=== PATIENT | male | born 1930 | race Caucasian/White ===

== ENCOUNTER 2019-05-02 16:02 | Emergency (ER) | payer OTHER ==
[~2019-05-02] VITALS: Ht 175.3 cm; Wt 63.5 kg
--- OUTSIDE RECORDS SUMMARY | 2019-05-02 16:07 | XMS REPORT ---
Author Author KEYON QURESHI Organization 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 Active 471594312 Problem Pure hypercholesterolemia E78.00 Active 667075066 Problem Benign prostatic hyperplasia with lower urinary tract symptoms N40.1 Active 990797307 Problem Recurrent major depressive disorder, in partial remission F33.41 Active 07546430 Problem Benign essential hypertension I10 Active 5217244 ALLERGIES No Known Allergies ENCOUNTERS Encounter Location Date Diagnosis [facility] [address] [place] [address] Mar, [place] [id number] [address] Dec, Diabetic nephropathy associated with type 2 diabetes mellitus E11.[address] [address] Dec, Type 2 diabetes mellitus with hyperglycemia, unspecified whether correction insulin use E11.65 ; Seizure R56.9 ; Benign essential hypertension I10 ; Nocturia R35.1 ; Benign prostatic hyperplasia with lower urinary tract symptoms N40.1 ; Pure hypercholesterolemia E78.00 and Recurrent major depressive disorder, in partial remission F33.41 [place] [address] [facility] [id number] [address] Dec, IMMUNIZATIONS No Known Immunizations SOCIAL HISTORY Never Assessed 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 PLAN OF CARE VITAL SIGNS MEDICATIONS Medication Instructions Dosage Frequency Start Date End Date Duration Status Lisinopril 2.5 MG Orally Once a day 1 tablet 24h 30 day(s) Active Keppra 500 MG Orally Twice a day 1 tablet 12h 30 day(s) Active Proscar 5 MG Orally Once a day 1 tablet 24h 30 day(s) Active Flomax 0.4 MG Orally Once a day 1 capsule 24h 30 day(s) Active Vision Formula/Lutein - as directed Active Zocor 80 MG Orally Once a day 1 tablet in the evening 24h 30 day(s) Active Dilantin 100 MG Orally Three times a day 1 capsule 8h 30 day(s) Active Ativan 0.5 MG Orally every 6 hrs 1 tablet as needed 6h Active Omeprazole 20 MG Orally Once a day 1 capsule 24h 30 day(s) Active Celexa 20 MG Orally Once a day 1 tablet 24h 30 day(s) Active Glucophage 1000 MG Orally Once a day 1 tablet with a meal 24h 30 day(s) Active Glucotrol 10 MG Orally Once a day 1 tablet 24h 30 day(s) Active RESULTS No Results PROCEDURES No Known procedures INSTRUCTIONS MEDICATIONS ADMINISTERED No Known Medications MEDICAL (GENERAL) HISTORY Type Description Date Medical History Type 2 diabetes mellitus Medical History Seizure disorder Medical History Hypercholesteremia Medical History Chronic kidney disease Medical History Acute blood loss anemia Medical History Delirium Medical History Cystitis without hematuria Surgical History Hip Replacement Surgical History Bypass Surgery 1989 Hospitalization History Fx Hip
--- OUTSIDE RECORDS SUMMARY | 2019-05-02 16:07 | XMS REPORT | Continuity of Care Document ---
Author Organization Unknown Address Unknown Allergies There is no data. Medications There is no data. Problems There is no data. Procedures There is no data. Results Test Result Range CMP - 12/15/18 08:00 GLUCOSE 235 mg/dL 65-99 UREA NITROGEN (BUN) 17 mg/dL 7-25 CREATININE 1.16 mg/dL 0.70-1.11 eGFR NON-AFR. UZBEK 57 mL/min/1.73m2 > OR=60 eGFR 66 mL/min/1.73m2 > OR=60 BUN/CREATININE RATIO 15 (calc) 6-22 SODIUM 140 mmol/L 135-146 POTASSIUM 4.9 mmol/L 3.5-5.3 CHLORIDE 104 mmol/L 98-110 CARBON DIOXIDE 28 mmol/L 20-32 CALCIUM 9.0 mg/dL 8.6-10.3 PROTEIN, TOTAL 6.8 g/dL 6.1-8.1 ALBUMIN 4.1 g/dL 3.6-5.1 GLOBULIN 2.7 g/dL (calc) 1.9-3.7 ALBUMIN/GLOBULIN RATIO 1.5 (calc) 1.0-2.5 BILIRUBIN, TOTAL 0.3 mg/dL 0.2-1.2 ALKALINE PHOSPHATASE 77 U/L 40-115 AST 11 U/L 10-35 ALT 12 U/L 9-46 CBC - 12/15/18 08:00 WHITE BLOOD CELL COUNT 9.3 Thousand/uL 3.8-10.8 RED BLOOD CELL COUNT 3.90 Million/uL 4.20-5.80 HEMOGLOBIN 12.8 g/dL 13.2-17.1 HEMATOCRIT 37.0 % 38.5-50.0 MCV 94.9 fL 80.0-100.0 MCH 32.8 pg 27.0-33.0 MCHC 34.6 g/dL 32.0-36.0 RDW 12.2 % 11.0-15.0 PLATELET COUNT 236 Thousand/uL 140-400 MPV 10.3 fL 7.5-12.5 ABSOLUTE NEUTROPHILS 5980 cells/uL 3231-4062 ABSOLUTE LYMPHOCYTES 2241 cells/uL 850-3900 ABSOLUTE MONOCYTES 744 cells/uL 200-950 ABSOLUTE EOSINOPHILS 298 cells/uL 15-500 ABSOLUTE BASOPHILS 37 cells/uL 0-200 NEUTROPHILS 64.3 % NRG LYMPHOCYTES 24.1 % NRG MONOCYTES 8.0 % NRG EOSINOPHILS 3.2 % NRG BASOPHILS 0.4 % NRG A1C - 12/15/18 08:00 HEMOGLOBIN A1c 8.0 % of total Hgb <5.7 CULTURE, URINE - 03/16/19 15:35 CULTURE, URINE, ROUTINE SEE NOTE NRG Encounters ACCT No. Visit Date/Time Discharge Status Pt. Type Provider Facility Loc./Unit Complaint [id number] 04/10/2019 11:40:00 04/10/2019 23:59:59 [facility] Outpatient KEYON QURESHI [facility] [id number] 03/16/2019 08:30:00 Document Registration [id number] 12/15/2018 09:15:00 Document Registration
[2019-05-02] MEDS ORDERED: LIDOCAINE 1% INJ 20 ML 20 ML VIAL INJ ONE (16:30)
--- NOTE | 2019-05-02 16:50 | ED Upper Extremity ---
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 States he tried to catch self resulting in the wound. States his tetanus is UTD. Denies any other injuries. Onset: just prior to arrival Severity: mild Pain/Injury Location: left wrist Method of Injury: fell, incised Modifying Factors: Improves With Other (none) Allergies and Home Medications Allergies Coded Allergies: No Known Drug Allergies (Unverified , 05/02/19) Patient Home Medication List Home Medication List Reviewed: Yes Review of Systems Constitutional: see HPI Skin: see HPI, other (laceration to left wrist) All Other Systems Reviewed Negative Unless Noted: Yes (Negative excepted noted.) Physical Exam Vital Signs Vital Signs - First Documented 05/02/19 16:15 Temp 97.4 Pulse 80 Resp 18 B/P (MAP) 101/51 (68) Pulse Ox 97 O2 Delivery Room Air Capillary Refill : Height, Weight, BMI Height: '" Weight: lbs. oz. kg; BMI Method: General Appearance: WD/WN, no apparent distress Cardiovascular: regular rate, rhythm Respiratory: no respiratory distress Wrist: Yes normal ROM, Yes pain Hand: normal inspection Neurologic/Psychiatric: no motor/sensory deficits, alert, normal mood/affect, oriented x 3 Skin: warm/dry, other (5 cm slightly irregular sub-q laceration to volar left wrist; bleeding controlled. Neurovascular is intact; FROM present. ) Procedures/Interventions Wound Location: Upper Extremities (left wrist) Wound Length (cm): 5 Wound's Depth, Shape: irregular, sub Q Wound Explored: clean Betadine Prep?: No (Hibiclens) Anesthesia: 1% Lidocaine Suture: Ethlion Suture Size: 4-0 Sterile Dressing Applied?: Yes Progress Patient tolerated well Progress/Results/Core Measures Results/Orders My Orders Departure Impression Primary Impression: Laceration of left hand Disposition: 01 HOME, SELF-CARE Condition: Improved Departure-Patient Inst. Decision time for Depature: 16:49 Referrals: KEYON QURESHI MD (PCP/Family) Primary Care Physician Patient Instructions: Laceration Repair With Stitches (DC) Add. Discharge Instructions: RETURN HERE IN 10 DAYS TO HAVE YOUR STITCHES REMOVED. RECOMMEND 1000 mg OF TYLENOL EVERY 6 HOURS FOR ANY PAIN. All discharge instructions reviewed with patient and/or family. Voiced understanding. MONTY GALICIA DO May 02, 2019 16:50
[2019-05-02 17:20] VITALS: BP 111/54
== END 2019-05-02 17:14 | disposition home or self-care (01) ==
LOC: EDUNIT# 16:02 → ER FS 16:04
DX: S61.512A Laceration without foreign body of left wrist, initial encounter (principal); X58.XXXA Exposure to other specified factors, initial encounter

== ENCOUNTER 2019-05-17 11:48 | Emergency (ER) | payer OTHER ==
[~2019-05-17] VITALS: Ht 162.6 cm; Wt 68.0 kg
--- OUTSIDE RECORDS SUMMARY | 2019-05-17 11:52 | XMS REPORT | Continuity of Care Document ---
Author Organization Unknown Address Unknown Phone Unavailable Allergies There is no data. Medications There is no data. Problems There is no data. Procedures There is no data. Results Test Result Range CMP - 12/15/18 08:00 GLUCOSE 235 mg/dL 65-99 UREA NITROGEN (BUN) 17 mg/dL 7-25 CREATININE 1.16 mg/dL 0.70-1.11 eGFR NON-AFR. CYMRO 57 mL/min/1.73m2 > OR=60 eGFR 66 mL/min/1.73m2 [...] 10.3 fL 7.5-12.5 ABSOLUTE NEUTROPHILS 5980 cells/uL 2070-3891 ABSOLUTE LYMPHOCYTES 2241 cells/uL 850-3900 ABSOLUTE MONOCYTES [...] Status Pt. Type Provider Facility Loc./Unit Complaint [id number] 04/10/2019 11:40:00 04/10/2019 23:59:59 [facility] Outpatient KEYON QURESHI [facility] [id number] 03/16/2019 08:30:00 Document Registration [id number] 12/15/2018 09:15:00 Document Registration
[2019-05-17 12:08] VITALS: BP 104/86
== END 2019-05-17 12:10 | disposition home or self-care (01) ==
LOC: EDUNIT# 11:48 → ER FS 11:49
DX: S61.512D Laceration without foreign body of left wrist, subsequent encounter (principal); X58.XXXD Exposure to other specified factors, subsequent encounter

== ENCOUNTER 2019-06-11 17:20 | Emergency (ER) | payer MEDICARE, OTHER ==
[~2019-06-11] VITALS: Ht 162.6 cm; Wt 68.0 kg
--- NOTE | 2019-06-11 17:33 | ED Chest Pain ---
General Stated Complaint: CHEST PAIN/SOA SWEATY Source: patient Exam Limitations: no limitations History of Present Illness Date Seen by Provider: Jun 11, 2019 Time Seen by Provider: 17:29 Initial Comments This 88-year-old white male presents with chest pain. Patient relates that sharp and in the epigastric area. The patient has had a history of bypass mcclendon rgery in the past. He denies associated shortness of breath, nausea, or diaphoresis. Patient denies productive cough, fever or chills, worsening chest pain with exertion, or dysuria or frequency. Allergies and Home Medications Allergies Coded Allergies: No Known Drug Allergies (Unverified , 05/02/19) Patient Home Medication List Home Medication List Reviewed: Yes Review of Systems Review of Systems Constitutional: no symptoms reported; No chills, No fever EENTM: No Symptoms Reported Respiratory: No Symptoms Reported Cardiovascular: See HPI, Chest Pain Gastrointestinal: No Symptoms Reported, Abdominal Pain (epigastric pain.); Denies Constipated, Denies Diarrhea, Denies Nausea, Denies Vomiting Genitourinary: No Symptoms Reported Musculoskeletal: no symptoms reported Skin: no symptoms reported Psychiatric/Neurological: No Symptoms Reported Endocrine: No Symptoms Reported Hematologic/Lymphatic: No Symptoms Reported Past Khuzmbb-Wygugn-Iifggd Hx Past Med/Social Hx: Reviewed Nursing Past Med/Soc Hx Patient Social History 2nd Hand Smoke Exposure: No Recent Hopitalizations: No Immunizations Up To Date Tetanus Booster (TDap): Less than 5yrs Seasonal Allergies Seasonal Allergies: No Past Medical History Surgeries: Yes (Left hip, hernia repair) CABG, Orthopedic Respiratory: Yes COPD Cardiac: Yes Coronary Artery Disease, Heart Attack, Hypertension Neurological: Yes Seizure Disorder Genitourinary: Yes (Chronic Kidney disease) Benign Prostatic Hyperpl Gastrointestinal: Yes Gastroesophageal Reflux, Chronic Constipation Musculoskeletal: Yes Fractures Endocrine: Yes Diabetes, Non-Insulin dep HEENT: No Cancer: No Psychosocial: Yes Depression Blood Disorders: No Physical Exam Vital Signs Capillary Refill : Height, Weight, BMI Height: 5'4.00" Weight: 150lbs. oz. 68.896157mz; 21.09 BMI Method:Stated General Appearance: No Apparent Distress, WD/WN HEENT: Normal ENT Inspection Neck: Normal Inspection Respiratory: Normal Breath Sounds, No Respiratory Distress Cardiovascular: Regular Rate, Rhythm, No Murmur Gastrointestinal: Normal Bowel Sounds, Non Tender Extremity: Normal Capillary Refill, Normal Inspection, Normal Range of Motion Neurologic/Psychiatric: Oriented x3, No Motor/Sensory Deficits Skin: Normal Color, Warm/Dry Procedures/Interventions Suture Size: 4-0 Progress/Results/Core Measures Results/Orders Lab Results Laboratory Tests Test 06/11/19 17:15 Range/Units White Blood Count 17.2 H 4.3-11.0 10^3/uL Red Blood Count 3.87 L 4.35-5.85 10^6/uL Hemoglobin 12.1 L 13.3-17.7 G/DL Hematocrit 36 L 40-54 % Mean Corpuscular Volume 93 80-99 FL Mean Corpuscular Hemoglobin 31 25-34 PG Mean Corpuscular Hemoglobin Concent 34 32-36 G/DL Red Cell Distribution Width 12.9 10.0-14.5 % Platelet Count 332 130-400 10^3/uL Mean Platelet Volume 9.7 7.4-10.4 FL Neutrophils (%) (Auto) 54 42-75 % Lymphocytes (%) (Auto) 31 12-44 % Monocytes (%) (Auto) 8 0-12 % Eosinophils (%) (Auto) 7 0-10 % Basophils (%) (Auto) 0 0-10 % Neutrophils # (Auto) 9.3 H 1.8-7.8 X 10^3 Lymphocytes # (Auto) 5.3 H 1.0-4.0 X 10^3 Monocytes # (Auto) 1.4 H 0.0-1.0 X 10^3 Eosinophils # (Auto) 1.2 H 0.0-0.3 10^3/uL Basophils # (Auto) 0.1 0.0-0.1 10^3/uL Neutrophils % (Manual) 54 % Lymphocytes % (Manual) 27 % Monocytes % (Manual) 7 % Eosinophils % (Manual) 10 % Basophils % (Manual) 0 % Band Neutrophils 2 % Prothrombin Time 13.9 12.2-14.7 SEC INR Comment 1.0 0.8-1.4 Activated Partial Thromboplast Time 26 24-35 SEC Sodium Level 140 135-145 MMOL/L Potassium Level 3.5 L 3.6-5.0 MMOL/L Chloride Level 104 98-107 MMOL/L Carbon Dioxide Level 22 21-32 MMOL/L Anion Gap 14 5-14 MMOL/L Blood Urea Nitrogen 19 H 7-18 MG/DL Creatinine 1.40 H 0.60-1.30 MG/DL Estimat Glomerular Filtration Rate 48 BUN/Creatinine Ratio 14 Glucose Level 186 H 70-105 MG/DL Calcium Level 9.0 8.5-10.1 MG/DL Corrected Calcium 9.2 8.5-10.1 MG/DL Magnesium Level 2.5 H 1.6-2.4 MG/DL Total Bilirubin 0.2 0.1-1.0 MG/DL Aspartate Amino Transf (AST/SGOT) 31 5-34 U/L Alanine Aminotransferase (ALT/SGPT) 19 0-55 U/L Alkaline Phosphatase 136 40-136 U/L Myoglobin 22.1 10.0-92.0 NG/ML Troponin I < 0.30 <0.30 NG/ML Total Protein 7.4 6.4-8.2 GM/DL Albumin 3.8 3.2-4.5 GM/DL My Orders Orders - YARY, NORBERTO Hogan MD Cbc With Automated Diff (06/11/19 17:23) Magnesium (06/11/19 17:23) Chest 1 View Ap/Pa Only (06/11/19 17:23) Ekg Tracing (06/11/19 17:23) Comprehensive Metabolic Panel (06/11/19 17:23) Myoglobin Serum (06/11/19 17:23) Protime With Inr (06/11/19 17:23) Partial Thromboplastin Time (06/11/19 17:23) O2 (06/11/19 17:23) Monitor-Rhythm Ecg Trace Only (06/11/19 17:23) Lipid Panel (06/12/19 06:00) Ed Iv/Invasive Line Start (06/11/19 17:23) Troponin I (06/11/19 17:23) Manual Differential (06/11/19 17:15) Nitroglycerin 0.4 Mg Btl 25's (Nitrostat (06/11/19 17:45) Progress Progress Note : Time: 18:16 Progress Note The patient's chest pain resolved spontaneously in the emergency department. Patient requested to be discharged home. Patient's laboratory evaluation demonstrated normal troponin. His EKG demonstrated a normal sinus rhythm. Departure Impression Primary Impression: Chest pain Qualified Codes: R07.9 - Chest pain, unspecified Disposition: 01 HOME, SELF-CARE Condition: Improved Departure-Patient Inst. Decision time for Depature: 18:18 Referrals: KEYON QURESHI MD (PCP/Family) Primary Care Physician Patient Instructions: Chest Pain (DC) Add. Discharge Instructions: Follow-up with her doctor on Wednesday for further evaluation. Return if any further episodes of chest pain occur. NORBERTO PRINGLE MD Jun 11, 2019 17:33
[2019-06-11 17:37] LABS: HEMATOCRIT 36 % (40-54); HEMOGLOBIN 12.1 G/DL (13.3-17.7); MEAN CORPUSCULAR HEMOGLOBIN 31 PG (25-34); MEAN CORPUSCULAR HGB CONC 34 G/DL (32-36); MEAN CORPUSCULAR VOLUME 93 FL (80-99); MEAN PLATELET VOLUME 9.7 FL (7.4-10.4); NEUTROPHILS % (AUTO) 54 % (42-75); PLATELET COUNT 332 10^3/uL (130-400); RED CELL DISTRIBUTION WIDTH 12.9 % (10.0-14.5); WHITE BLOOD COUNT 17.2 10^3/uL (4.3-11.0)
[2019-06-11 17:38] LABS: BASOPHILS # (AUTO) 0.1 10^3/uL (0.0-0.1); BASOPHILS % (AUTO) 0 % (0-10); EOSINOPHILS # (AUTO) 1.2 10^3/uL (0.0-0.3); EOSINOPHILS % (AUTO) 7 % (0-10); LYMPHOCYTES # (AUTO) 5.3 X 10^3 (1.0-4.0); LYMPHOCYTES % (AUTO) 31 % (12-44); MONOCYTES # (AUTO) 1.4 X 10^3 (0.0-1.0); MONOCYTES % (AUTO) 8 % (0-12); NEUTROPHILS # (AUTO) 9.3 X 10^3 (1.8-7.8)
[2019-06-11] MEDS ORDERED: NITROGLYCERIN 0.4 MG SL TABS BTL 25'S SL PRN (17:45)
--- NOTE | 2019-06-11 17:50 | Diagnostic Imaging Report ---
INDICATION: Chest pain. EXAMINATION: Single view of the chest was obtained. FINDINGS: Normal heart size and vascularity. The lungs are clear. There is no effusion or pneumothorax. There are changes of prior CABG. There is a hiatal hernia. IMPRESSION: Hiatal hernia. No acute abnormality is seen. Dictated by: Dictated on workstation # [id number]
[2019-06-11 17:52] LABS: BAND NEUTROPHILS 2 %; BASOPHILS % (MANUAL) 0 %; EOSINOPHILS % (MANUAL) 10 %; LYMPHOCYTES % (MANUAL) 27 %; MONOCYTES % (MANUAL) 7 %; NEUTROPHILS % (MANUAL) 54 %
[2019-06-11 18:03] LABS: BILIRUBIN,TOTAL 0.2 MG/DL (0.1-1.0); CREATININE SERUM 1.4 MG/DL (0.60-1.30); MAGNESIUM 2.5 MG/DL (1.6-2.4); POTASSIUM 3.5 MMOL/L (3.6-5.0)
[2019-06-11 18:04] LABS: ALBUMIN 3.8 GM/DL (3.2-4.5); TOTAL PROTEIN 7.4 GM/DL (6.4-8.2)
[2019-06-11 18:12] LABS: PROTHROMBIN TIME PATIENT 13.9 SEC (12.2-14.7)
[2019-06-11 18:28] VITALS: BP 115/62
== END 2019-06-11 18:28 | disposition home or self-care (01) ==
LOC: EDUNIT# 17:20 → ER FS 17:22
DX: R07.9 Chest pain, unspecified (principal); J44.9 Chronic obstructive pulmonary disease, unspecified; I12.9 Hypertensive chronic kidney disease with stage 1 through stage 4 chronic kidney disease, or unspecified chronic kidney disease; N18.9 Chronic kidney disease, unspecified; I25.2 Old myocardial infarction; I25.10 Atherosclerotic heart disease of native coronary artery without angina pectoris; G40.909 Epilepsy, unspecified, not intractable, without status epilepticus; N40.0 Benign prostatic hyperplasia without lower urinary tract symptoms; K21.9 Gastro-esophageal reflux disease without esophagitis; E11.22 Type 2 diabetes mellitus with diabetic chronic kidney disease; F32.9 Major depressive disorder, single episode, unspecified; Z95.1 Presence of aortocoronary bypass graft; Z98.890 Other specified postprocedural states
CPT/HCPCS: 36415; 71045; 80053; 83735; 83874; 84484; 85007; 85027; 85610; 85730; 93005; 93041

== ENCOUNTER 2020-02-08 14:12 | Emergency (ER) | payer MEDICARE ==
[~2020-02-08] VITALS: Ht 175.2 cm; Wt 65.9 kg
--- NOTE | 2020-02-08 14:29 | ED Cardiac General ---
History of Present Illness General Stated Complaint: NEW ONSET ARRHYTHMIA; LT ARM PAIN Source: patient Exam Limitations: no limitations History of Present Illness Date Seen by Provider: Feb 08, 2020 Time Seen by Provider: 14:15 Initial Comments The patient is an 89-year-old male who presents for evaluation of a possible arrhythmia. He states that a home health nurse came to evaluate him for prescheduled visit and thought that she auscultated in arrhythmia. The patient w as brought to his doctor's office where the nurse also thought that she heard a dysrhythmia so the patient was brought to the emergency department. He does not feel any palpitations and has absolutely no complaints at this time. His blood pressure upon arrival is 125/67. Specifically he denies chest pain, shortness of breath, nausea or vomiting, diaphoresis, dizziness, abdominal or back pain, or syncope. He is alert and oriented 4, calm, and appears to be in no distress at this time. 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: No ASA po PASSENGER TRAIN BRAKER: No Associated Systoms: Denies Symptoms Allergies and Home Medications Allergies Coded Allergies: No Known Drug Allergies (Unverified , 05/02/19) Patient Home Medication List Home Medication List Reviewed: Yes Review of Systems Review of Systems Constitutional: no symptoms reported EENTM: No Symptoms Reported Respiratory: No Symptoms Reported Cardiovascular: No Symptoms Reported Gastrointestinal: No Symptoms Reported Genitourinary: No Symptoms Reported Musculoskeletal: no symptoms reported Skin: no symptoms reported Psychiatric/Neurological: No Symptoms Reported Endocrine: No Symptoms Reported Hematologic/Lymphatic: No Symptoms Reported All Other Systems Reviewed Negative Unless Noted: Yes Past Qbflggt-Pyhypq-Ylkazz Hx Past Med/Social Hx: Reviewed Nursing Past Med/Soc Hx Patient Social History 2nd Hand Smoke Exposure: No Recent Foreign Travel: No Contact w/Someone Who Travel: No Recent Hopitalizations: No Immunizations Up To Date Tetanus Booster (TDap): Unknown Seasonal Allergies Seasonal Allergies: No Past Medical History Surgeries: Yes (Left hip, hernia repair) Cardiac, CABG, Orthopedic Respiratory: Yes COPD Cardiac: Yes Coronary Artery Disease, Heart Attack, Hypertension Neurological: Yes Seizure Disorder Genitourinary: Yes (Chronic Kidney disease) Benign Prostatic Hyperpl Gastrointestinal: Yes Gastroesophageal Reflux, Chronic Constipation Musculoskeletal: Yes Fractures Endocrine: Yes Diabetes, Non-Insulin dep HEENT: No Cancer: No Psychosocial: Yes Depression Integumentary: No Blood Disorders: No Physical Exam Vital Signs Vital Signs - First Documented 02/08/20 14:15 Temp 36.8 Pulse 73 Resp 18 B/P (MAP) 125/67 (86) Pulse Ox 96 O2 Delivery Room Air Capillary Refill : Height, Weight, BMI Height: 5'4.00" Weight: 150lbs. oz. 68.995948rd; 21.09 BMI Method:Stated General Appearance: No Apparent Distress, WD/WN HEENT: PERRL/EOMI, Pharynx Normal Neck: Full Range of Motion, Normal Inspection, Non Tender Respiratory: Lungs Clear, Normal Breath Sounds, No Accessory Muscle Use, No Respiratory Distress Cardiovascular: No Edema, No Gallop, No JVD, Normal Peripheral Pulses, Irregularly Irregular Gastrointestinal: Normal Bowel Sounds, No Pulsatile Mass, Non Tender, Soft Extremity: Normal Capillary Refill, Normal Inspection, Non Tender Neurologic/Psychiatric: Alert, Oriented x3, No Motor/Sensory Deficits, Normal Mood/Affect Skin: Normal Color, Warm/Dry Procedures/Interventions Suture Size: 4-0 Progress/Results/Core Measures Results/Orders Lab Results Laboratory Tests Test 02/08/20 14:32 Range/Units White Blood Count 8.7 4.3-11.0 10^3/uL Red Blood Count 3.94 L 4.35-5.85 10^6/uL Hemoglobin 12.5 L 13.3-17.7 G/DL Hematocrit 38 L 40-54 % Mean Corpuscular Volume 96 80-99 FL Mean Corpuscular Hemoglobin 32 25-34 PG Mean Corpuscular Hemoglobin Concent 33 32-36 G/DL Red Cell Distribution Width 12.5 10.0-14.5 % Platelet Count 257 130-400 10^3/uL Mean Platelet Volume 9.0 7.4-10.4 FL Neutrophils (%) (Auto) 58 42-75 % Lymphocytes (%) (Auto) 23 12-44 % Monocytes (%) (Auto) 8 0-12 % Eosinophils (%) (Auto) 10 0-10 % Basophils (%) (Auto) 1 0-10 % Neutrophils # (Auto) 5.0 1.8-7.8 X 10^3 Lymphocytes # (Auto) 2.0 1.0-4.0 X 10^3 Monocytes # (Auto) 0.7 0.0-1.0 X 10^3 Eosinophils # (Auto) 0.9 H 0.0-0.3 10^3/uL Basophils # (Auto) 0.1 0.0-0.1 10^3/uL Sodium Level 140 135-145 MMOL/L Potassium Level 4.0 3.6-5.0 MMOL/L Chloride Level 104 98-107 MMOL/L Carbon Dioxide Level 24 21-32 MMOL/L Anion Gap 12 5-14 MMOL/L Blood Urea Nitrogen 19 H 7-18 MG/DL Creatinine 1.38 H 0.60-1.30 MG/DL Estimat Glomerular Filtration Rate 49 BUN/Creatinine Ratio 14 Glucose Level 165 H 70-105 MG/DL Calcium Level 8.7 8.5-10.1 MG/DL Corrected Calcium 8.9 8.5-10.1 MG/DL Total Bilirubin 0.2 0.1-1.0 MG/DL Aspartate Amino Transf (AST/SGOT) 11 5-34 U/L Alanine Aminotransferase (ALT/SGPT) 10 0-55 U/L Alkaline Phosphatase 117 40-136 U/L Troponin I < 0.30 <0.30 NG/ML Pro-B-Type Natriuretic Peptide 531.0 H <75.0 PG/ML Total Protein 6.8 6.4-8.2 GM/DL Albumin 3.8 3.2-4.5 GM/DL My Orders Orders - COLBY JEROME DO Cbc With Automated Diff (02/08/20 14:16) Chest 1 View Ap/Pa Only (02/08/20 14:16) Ekg Tracing (02/08/20 14:16) Comprehensive Metabolic Panel (02/08/20 14:16) O2 (02/08/20 14:16) Monitor-Rhythm Ecg Trace Only (02/08/20 14:16) Ed Iv/Invasive Line Start (02/08/20 14:16) Troponin I Fs (02/08/20 14:16) Probnp Fs (02/08/20 14:16) Vital Signs/I&O 02/08/20 14:15 Temp 36.8 Pulse 73 Resp 18 B/P (MAP) 125/67 (86) Pulse Ox 96 O2 Delivery Room Air Progress Progress Note : Progress Note @1522 - patient updated on lab and imaging results. His creatinine was noted to be elevated but is similar to previous visits. His BNP is also somewhat elevated and there is no previous comparison. However the patient has no complaints at all at this time. Advised him to follow up with his PCP and/or education and training coordinator in the next 1-2 days and to return to the emergency Department immediately for difficulty breathing, chest pain, new or worsening symptoms. The patient expresses verbal understanding and agreement with the plan and is stable for discharge. Comment EKG@1430 - Normal sinus rhythm, rate of 64, normal axis, occasional premature beat, no acute ischemic findings noted, no STEMI, reviewed and interpreted by myself Diagnostic Imaging Diagonstic Imaging: Xray Comments [facility] [place] NAME: MONTY BARRIENTOS [facility] REC#: [id number] PT STATUS: REG ER : 1932 PHYSICIAN: COLBY JEROME DO ADMIT DATE: 02/08/20/ER FS Signed Date of Exam:02/08/20 CHEST 1 VIEW AP/PA ONLY INDICATION: Irregular heart rate, left arm pain. Frontal chest obtained at 0234 p.m. compared 06/11/2019 There is poststernotomy change. The heart is top limits normal in size. There are mild chronic appearing increased interstitial markings. There is relatively poor inspiration. There is no edwin consolidation or pneumothorax or pleural fluid. IMPRESSION: Relatively poor inspiration. Postoperative changes with borderline heart size. Chronic appearing increased markings with no definite acute consolidation or pleural fluid. Dictated by: Dictated on workstation # [id number] Dict: 02/08/20 1439 Trans: 02/08/20 1453 [facility] [id number] Interpreted by: BREANNA KO MD Electronically signed by: BREANNA KO MD 02/08/20 1453 Departure Impression Primary Impression: Sinus arrhythmia seen on electrocardiogram Additional Impressions: Chronic renal insufficiency Elevated brain natriuretic peptide (BNP) level Disposition: 01 HOME, SELF-CARE Condition: Stable Departure-Patient Inst. Decision time for Depature: 15:24 Referrals: KEYON QURESHI MD (PCP/Family) Primary Care Physician Patient Instructions: Arrhythmias Add. Discharge Instructions: Follow-up with your primary care doctor or your education and training coordinator in the next 1-2 days. Return to the emergency Department immediately for new or worsening symptoms. COLBY JEROME DO Feb 08, 2020 14:29
[2020-02-08 14:41] LABS: HEMATOCRIT 38 % (40-54); HEMOGLOBIN 12.5 G/DL (13.3-17.7); MEAN CORPUSCULAR HEMOGLOBIN 32 PG (25-34); MEAN CORPUSCULAR HGB CONC 33 G/DL (32-36); MEAN CORPUSCULAR VOLUME 96 FL (80-99); PLATELET COUNT 257 10^3/uL (130-400); RED CELL DISTRIBUTION WIDTH 12.5 % (10.0-14.5); WHITE BLOOD COUNT 8.7 10^3/uL (4.3-11.0)
[2020-02-08 14:42] LABS: BASOPHILS # (AUTO) 0.1 10^3/uL (0.0-0.1); BASOPHILS % (AUTO) 1 % (0-10); EOSINOPHILS # (AUTO) 0.9 10^3/uL (0.0-0.3); EOSINOPHILS % (AUTO) 10 % (0-10); LYMPHOCYTES % (AUTO) 23 % (12-44); MONOCYTES # (AUTO) 0.7 X 10^3 (0.0-1.0); MONOCYTES % (AUTO) 8 % (0-12); NEUTROPHILS % (AUTO) 58 % (42-75)
--- NOTE | 2020-02-08 14:44 | Diagnostic Imaging Report ---
INDICATION: Irregular heart rate, left arm pain. Frontal chest obtained at 0234 p.m. compared 06/11/2019 There is poststernotomy change. The heart is top limits normal in size. There are mild chronic appearing increased interstitial markings. There is relatively poor inspiration. There is no edwin consolidation or pneumothorax or pleural fluid. IMPRESSION: Relatively poor inspiration. Postoperative changes with borderline heart size. Chronic appearing increased markings with no definite acute consolidation or pleural fluid. Dictated by: Dictated on workstation # [id number]
[2020-02-08 15:01] LABS: ALBUMIN 3.8 GM/DL (3.2-4.5); BILIRUBIN,TOTAL 0.2 MG/DL (0.1-1.0); CALCIUM 8.7 MG/DL (8.5-10.1); CREATININE SERUM 1.38 MG/DL (0.60-1.30); TOTAL PROTEIN 6.8 GM/DL (6.4-8.2)
--- OUTSIDE RECORDS SUMMARY | 2020-02-08 15:01 | XMS REPORT | Continuity of Care Document ---
Author Organization Unknown Address Unknown Phone Unavailable Allergies Active Description Code Type Severity Reaction Onset Reported/Identified Relationship to Patient Clinical Status Yes No Known Drug Allergies [id number] Drug Allergy Unknown N/A 05/02/2019 Medications There is no data. Problems Date Dx Coded Attending Type Code Diagnosis Diagnosed By 05/02/2019 WILLIAM GALICIA DO, Ot S61.512A LACERATION WITHOUT FOREIGN BODY OF LEFT 05/02/2019 WILLIAM GALICIA DO, Ot X58.XXXA EXPOSURE TO OTHER SPECIFIED FACTORS, INI 05/08/2019 WILLIAM GALICIA DO, Ot S61.512A LACERATION WITHOUT FOREIGN BODY OF LEFT 05/08/2019 WILLIAM GALICIA DO, Ot X58.XXXA EXPOSURE TO OTHER SPECIFIED FACTORS, INI 05/17/2019 JEANNE FREIRE DO, Ot S61.512D LACERATION WITHOUT FOREIGN BODY OF LEFT 05/17/2019 JEANNE FREIRE DO Ot X58.XXXD EXPOSURE TO OTHER SPECIFIED FACTORS, SUB 05/22/2019 JEANNE FREIRE DO, Ot S61.512D LACERATION WITHOUT FOREIGN BODY OF LEFT 05/22/2019 JEANNE FREIRE DO Ot X58.XXXD EXPOSURE TO OTHER SPECIFIED FACTORS, SUB 06/11/2019 YARY LIZARRAGA, NORBERTO Hogan Ot 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 10 ATHSCL HEART DISEASE OF [place] CORONARY 06/11/2019 NORBERTO PRINGLE MD Ot I25. 2 OLD MYOCARDIAL INFARCTION 06/11/2019 YARY LIZARRAGA, NORBERTO Hogan Ot J44. 9 CHRONIC OBSTRUCTIVE PULMONARY DISEASE, U 06/11/2019 NORBERTO PRINGLE MD Ot K21. 9 GASTRO-ESOPHAGEAL REFLUX DISEASE WITHOUT 06/11/2019 NORBERTO PRINGLE MD Ot N18. 9 CHRONIC KIDNEY DISEASE, UNSPECIFIED 06/11/2019 NORBERTO PRINGLE MD Ot N40. 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 9 CHEST PAIN, UNSPECIFIED 06/11/2019 NORBERTO PRINGLE MD Ot Z95. 1 PRESENCE OF AORTOCORONARY BYPASS GRAFT 06/11/2019 NORBERTO PRINGLE MD Ot Z98.890 OTHER SPECIFIED POSTPROCEDURAL STATES 06/14/2019 YARY LIZARRAGA, NORBERTO Hogan Ot E11. 22 TYPE 2 DIABETES MELLITUS W [employer] 06/14/2019 NORBERTO PRINGLE MD Ot F32. 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 10 ATHSCL HEART DISEASE OF [place] CORONARY 06/14/2019 NORBERTO PRINGLE MD Ot I25. 2 OLD MYOCARDIAL INFARCTION 06/14/2019 YARY LIZARRAGA, NORBERTO Hogan Ot J44. 9 CHRONIC OBSTRUCTIVE PULMONARY DISEASE, U 06/14/2019 NORBERTO PRINGLE MD Ot K21. 9 GASTRO-ESOPHAGEAL REFLUX DISEASE WITHOUT 06/14/2019 NORBERTO PRINGLE MD Ot N18. 9 CHRONIC KIDNEY DISEASE, UNSPECIFIED 06/14/2019 NORBERTO PRINGLE MD Ot N40. 0 BENIGN PROSTATIC HYPERPLASIA WITHOUT LOW 06/14/2019 NORBERTO PRINGLE MD Ot R07. 9 CHEST PAIN, UNSPECIFIED 06/14/2019 NORBERTO PRINGLE MD Ot Z95. 1 PRESENCE OF AORTOCORONARY BYPASS GRAFT 06/14/2019 NORBERTO PRINGLE MD Ot Z98.890 OTHER SPECIFIED POSTPROCEDURAL STATES 06/21/2019 JEANNE FREIRE DO Ot S61.512D LACERATION WITHOUT FOREIGN BODY OF LEFT 06/21/2019 JEANNE FREIRE DO Ot X58.XXXD EXPOSURE TO OTHER SPECIFIED FACTORS, SUB Procedures There is no data. Results Test Result Range CMP - 12/15/18 08:00 GLUCOSE 235 mg/dL 65-99 UREA NITROGEN (BUN) 17 mg/dL 7-25 CREATININE 1.16 mg/dL 0.70-1.11 eGFR NON-AFR. CITIZ[place] 57 mL/min/1.73m2 > OR = 60 eGFR 66 mL/min/1.73m2 > OR = 60 BUN/CREATININE RATIO 15 (calc) 6-22 SODIUM 140 mmol/L 135-146 POTASSIUM 4.9 mmol/L 3.5-5.3 CHLORIDE 104 mmol/L 98-110 CARBON DIOXIDE 28 mmol/L 20-32 CALCIUM 9.0 mg/dL 8.6-10.3 PROTEIN, TOTAL 6.8 g/dL 6.1-8.1 ALBUMIN 4.1 g/dL 3.6-5.1 GLOBULIN 2.7 g/dL (calc) 1.9-3.7 ALBUMIN/GLOBULIN RATIO 1.5 (calc) 1.0-2. 5 BILIRUBIN, TOTAL 0.3 mg/dL 0.2-1.2 ALKALINE PHOSPHATASE 77 U/L 40-115 AST 11 U/L 10-35 ALT 12 U/L 9-46 CBC - 12/15/18 08:00 WHITE BLOOD CELL COUNT 9.3 Thousand/uL 3 .8-10.8 RED BLOOD CELL COUNT 3.90 Million/uL 4.2 0-5.80 HEMOGLOBIN 12.8 g/dL 13.2-17.1 HEMATOCRIT 37.0 % 38.5-50.0 MCV 94.9 fL 80.0-100.0 MCH 32.8 pg 27.0-33.0 MCHC 34.6 g/dL 32.0-36.0 RDW 12.2 % 11.0-15.0 PLATELET COUNT 236 Thousand/uL 140-400 MPV 10.3 fL 7.5-12.5 ABSOLUTE NEUTROPHILS 5980 cells/uL 1500- 7800 ABSOLUTE LYMPHOCYTES 2241 cells/uL 850-3 900 ABSOLUTE MONOCYTES 744 cells/uL 200-950 ABSOLUTE EOSINOPHILS 298 cells/uL 15-500 ABSOLUTE BASOPHILS 37 cells/uL 0-200 NEUTROPHILS 64.3 % NRG LYMPHOCYTES 24.1 % NRG MONOCYTES 8.0 % NRG EOSINOPHILS 3.2 % NRG BASOPHILS 0.4 % NRG A1C - 12/15/18 08:00 HEMOGLOBIN A1c 8.0 % of total Hgb <5.7 CULTURE, URINE - 03/16/19 15:35 CULTURE, URINE, ROUTINE SEE NOTE NRG Complete blood count (CBC) with automate d white blood cell (WBC) differential - 06/11/19 17:15 Blood leukocytes automated count (number/volume) 17.2 10*3/uL 4.3-11.0 Blood erythrocytes automated count (number/volume) 3.87 10*6/uL 4.35-5.85 Venous blood hemoglobin measurement (mass/volume) 12.1 g/dL 13.3-17.7 Blood hematocrit (volume fraction) 36 % 40-54 Automated erythrocyte mean corpuscular volume 93 [ foz_us] 80-99 Automated erythrocyte mean corpuscular h emoglobin (mass per erythrocyte) 31 pg 25-34 Automated erythrocyte mean corpuscular h emoglobin concentration measurement (mass/volume) 34 g/dL 32-36 Automated erythrocyte distribution width ratio 12. 9 % 10.0- 14.5 Automated blood platelet count (count/volume) 332 10*3/uL 130-400 Automated blood platelet mean volume measurement 9.7 [foz_us] 7.4-10.4 Automated blood neutrophils/100 leukocytes 54 % 42-75 Automated blood lymphocytes/100 leukocytes 31 % 12-44 Blood monocytes/100 leukocytes 8 % 0-12 Automated blood eosinophils/100 leukocytes 7 % 0-10 Automated blood basophils/100 leukocytes 0 % 0-10 Blood neutrophils automated count (number/volume) 9.3 10*3 1.8-7.8 Blood lymphocytes automated count (number/volume) 5.3 10*3 1.0-4.0 Blood monocytes automated count (number/volume) 1. 4 10*3 0.0-1.0 Automated eosinophil count 1.2 10*3/uL 0 .0-0.3 Automated blood basophil count (count/volume) 0.1 10*3/uL 0.0-0.1 Manual absolute plasma cell count - 10/29 17:15 Blood monocytes/100 leukocytes 7 % NRG Manual blood segmented neutrophils/100 leukocytes 54 % NRG Blood band neutrophils/100 leukocytes 2 % NRG Manual blood lymphocytes/100 leukocytes 27 % NRG Manual eosinophils/100 leukocytes in nose 10 % NRG Manual blood basophils/100 leukocytes 0 % NRG Comprehensive metabolic panel - 06/11/19 17:15 Serum or plasma sodium measurement (moles/volume) 140 mmol/L 135-145 Serum or plasma potassium measurement (moles/volume) 3.5 mmol/L 3.6-5.0 Serum or plasma chloride measurement (moles/volume) 104 mmol/L 98-107 Carbon dioxide 22 mmol/L 21-32 Serum or plasma anion gap determination (moles/volume) 14 mmol/L 5-14 Serum or plasma urea nitrogen measurement (mass/volume ) 19 mg/dL 7-18 Serum or plasma creatinine measurement (mass/volume) 1.40 mg/dL 0.60-1.30 Serum or plasma urea nitrogen/creatinine mass ratio 14 NRG Serum or plasma creatinine measurement w ith calculation of estimated glomerular filtration rate 48 NRG Serum or plasma glucose measurement (mass/volume) 186 mg/dL 70-105 Serum or plasma calcium measurement (mass/volume) 9.0 mg/dL 8.5-10.1 Serum or plasma total bilirubin measurement (mass/volu me) 0.2 mg/dL 0.1-1.0 Serum or plasma alkaline phosphatase velasquez surement (enzymatic activity/volume) 136 U/L 40-136 Serum or plasma aspartate aminotransfera se measurement (enzymatic activity/volume) 31 U/L 5-34 Serum or plasma alanine aminotransferase measurement (enzymatic activity/volume) 19 U/L 0-55 Serum or plasma protein measurement (mass/volume) 7.4 g/dL 6.4-8.2 Serum or plasma albumin measurement (mass/volume) 3.8 g/dL 3.2-4.5 CALCIUM CORRECTED 9.2 mg/dL 8.5-10.1 Magnesium - 06/11/19 17:15 Magnesium 2.5 mg/dL 1.6-2.4 Myoglobin, serum - 06/11/19 17:15 Myoglobin, serum 22.1 ng/mL 10.0-92.0 Serum or plasma troponin i.cardiac measu rement (mass/volume) - 06/11/19 17:15 Serum or plasma troponin i.cardiac measurement (mass/v olume) < ng/mL <0.30 PT panel in platelet poor plasma by coag ulation assay - 06/11/19 17:15 Prothrombin time (PT) in platelet poor plasma by coagu lation assay 13.9 s 12.2-14.7 INR in platelet poor plasma or blood by coagulation as say 1.0 0.8-1.4 Activated partial thromboplastin time (a PTT) in platelet poor plasma bycoagulation assay - 06/11/19 17:15 Activated partial thromboplastin time (a PTT) in platelet poor plasma bycoagulation assay 26 s 24-35 CULTURE, URINE - 06/15/19 13:36 CULTURE, URINE, ROUTINE SEE NOTE NRG A1C - 06/15/19 13:36 HEMOGLOBIN A1c 8.9 % of total Hgb <5.7 DILANTIN - 10/30/19 11:00 PHENYTOIN 3.8 mg/L 10.0-20.0 A1C - 10/30/19 11:00 HEMOGLOBIN A1c 7.6 % of total Hgb <5.7 Complete blood count (CBC) with automate d white blood cell (WBC) differential - 02/08/20 14:32 Blood leukocytes automated count (number/volume) 8.7 10*3/uL 4.3-11.0 Blood erythrocytes automated count (number/volume) 3.94 10*6/uL 4.35-5.85 Venous blood hemoglobin measurement (mass/volume) 12.5 g/dL 13.3-17.7 Blood hematocrit (volume fraction) 38 % 40-54 Automated erythrocyte mean corpuscular volume 96 [ foz_us] 80-99 Automated erythrocyte mean corpuscular h emoglobin (mass per erythrocyte) 32 pg 25-34 Automated erythrocyte mean corpuscular h emoglobin concentration measurement (mass/volume) 33 g/dL 32-36 Automated erythrocyte distribution width ratio 12. 5 % 10.0- 14.5 Automated blood platelet count (count/volume) 257 10*3/uL 130-400 Automated blood platelet mean volume measurement 9.0 [foz_us] 7.4-10.4 Automated blood neutrophils/100 leukocytes 58 % 42-75 Automated blood lymphocytes/100 leukocytes 23 % 12-44 Blood monocytes/100 leukocytes 8 % 0-12 Automated blood eosinophils/100 leukocytes 10 % 0-10 Automated blood basophils/100 leukocytes 1 % 0-10 Blood neutrophils automated count (number/volume) 5.0 10*3 1.8-7.8 Blood lymphocytes automated count (number/volume) 2.0 10*3 1.0-4.0 Blood monocytes automated count (number/volume) 0. 7 10*3 0.0-1.0 Automated eosinophil count 0.9 10*3/uL 0 .0-0.3 Automated blood basophil count (count/volume) 0.1 10*3/uL 0.0-0.1 Encounters ACCT No. Visit Date/Time Discharge Status Pt. Type Provider Facility Loc./Unit Complaint [id number] 01/08/2020 10:30:00 01/08/2020 23:59: [facility] Outpatient KEYON QURESHI [facility] [id number] 10/30/2019 09:45:00 Document Registration [id number] 06/15/2019 15:30:00 Document Registration [id number] 03/16/2019 08:30:00 Document Registration [id number] 12/15/2018 09:15:00 Document Registration [id number] 06/11/2019 17:22:00 18:28:00 DIS Emergency NORBERTO PRINGLE MD [facility] ER FS CHEST PAIN/SOA SWEATY [id number] 05/17/2019 11:49:00 12:10:00 DIS Outpatient JEANNE FREIRE DO [facility] ER FS SUTURE REMOVAL [id number] 05/02/2019 16:04:00 17:14:00 DIS Emergency WILLIAM GALICIA DO [facility] ER FS LT WRIST LAC [id number] 02/08/2020 14:43:00 Document Registration
[2020-02-08 15:35] VITALS: BP 125/69
== END 2020-02-08 15:35 | disposition home or self-care (01) ==
LOC: EDUNIT# 14:12 → ER FS 14:15
DX: I49.8 Other specified cardiac arrhythmias (principal); E11.22 Type 2 diabetes mellitus with diabetic chronic kidney disease; I12.9 Hypertensive chronic kidney disease with stage 1 through stage 4 chronic kidney disease, or unspecified chronic kidney disease; N18.9 Chronic kidney disease, unspecified; R79.0 Abnormal level of blood mineral; I25.2 Old myocardial infarction; Z95.1 Presence of aortocoronary bypass graft
CPT/HCPCS: 36415; 71045; 80053; 83880; 84484; 85025; 93005; 93041

== ENCOUNTER → 2021-07-02 | Outpatient (CLI) | payer MEDICARE ==
[2021-07-02 12:50] LABS: CLARITY,URINE CLOUDY; COLOR,URINE YELLOW; PROTEIN,URINE NEGATIVE (NEGATIVE)
[2021-07-02 12:51] LABS: BACTERIA,URINE NEGATIVE /HPF; BILIRUBIN,URINE NEGATIVE (NEGATIVE); GLUCOSE, URINE (UA) 3+ (NEGATIVE); KETONES,URINE NEGATIVE (NEGATIVE); LEUKOCYTE ESTERASE ,URINE 2+ (NEGATIVE); NITRITE,URINE NEGATIVE (NEGATIVE); WBC,URINE >100 /HPF
== END ==
LOC: IHC 11:31
PROVIDERS: ATTEND Family Medicine
DX: G40.89 Other seizures (principal); R44.3 Hallucinations, unspecified
CPT/HCPCS: 80185; 81000; 87088

== ENCOUNTER 2021-07-13 10:19 | Emergency (ER) | payer MEDICARE ==
--- NOTE | 2021-07-13 10:31 | ED General ---
General Chief Complaint: Abdominal/GI Problems Stated Complaint: HEMATEMESIS; ABD PAIN Source of Information: Patient History of Present Illness Date Seen by Provider: Jul 13, 2021 Time Seen by Provider: 10:24 Initial Comments 89-year-old male presenting with complaints of abdominal bloating and an episode of vomiting this morning. He states he did eat some pizza last night before bed and then this morning he threw up and saw some red in the vomit. He was unsure if that was related to the pizza he ate with some blood in his vomit. He had recently been constipated but said that he took some stool softeners and Ex-Lax last night. He denies any abdominal pain or bloating. He denies any pain or burning with urination. He has had no fever or chills, cough, shortness of breath, continued nausea. He was worried that there might have been blood so he came to be evaluated in the ED. He denies any black or tarry stools. Timing/Duration: 4-6 Hours Associated Systoms: No Chest Pain, No Cough, No Diaphoresis, No Fever/Chills, No Headaches, No Loss of Appetite, No Malaise; Nausea/Vomiting (x 1); No Rash, No Seizure, No Shortness of Air, No Syncope, No Weakness Allergies and Home Medications Allergies Coded Allergies: No Known Drug Allergies (Unverified , 05/02/19) Patient Home Medication List Home Medication List Reviewed: Yes Cephalexin (Cephalexin) 500 Mg Tablet, 500 MG PO TID Prescribed by: NEVAEH AGUILAR on 07/13/21 1236 Pantoprazole Sodium (Pantoprazole Sodium) 40 Mg Tablet.dr, 40 MG PO DAILY Prescribed by: NEVAEH AGUILAR on 07/13/21 1236 Review of Systems Review of Systems Constitutional: No chills, No fever EENTM: no symptoms reported Respiratory: no symptoms reported Cardiovascular: no symptoms reported Gastrointestinal: see HPI Genitourinary: no symptoms reported Musculoskeletal: no symptoms reported Skin: no symptoms reported Psychiatric/Neurological: No Symptoms Reported Past Vthrtyq-Inckbl-Spanjv Hx Immunizations Up To Date Tetanus Booster (TDap): Unknown Seasonal Allergies Seasonal Allergies: No Past Medical History Surgeries: Yes (Left hip, hernia repair) Cardiac, CABG, Orthopedic Respiratory: Yes COPD Cardiac: Yes Coronary Artery Disease, Heart Attack, Hypertension Neurological: Yes Seizure Disorder Genitourinary: Yes (Chronic Kidney disease) Benign Prostatic Hyperpl Gastrointestinal: Yes Gastroesophageal Reflux, Chronic Constipation Musculoskeletal: Yes Fractures Endocrine: Yes Diabetes, Non-Insulin dep HEENT: No Cancer: No Psychosocial: Yes Depression Integumentary: No Blood Disorders: No Physical Exam Vital Signs Vital Signs - First Documented 07/13/21 10:30 Temp 36.7 Pulse 109 Resp 18 B/P (MAP) 133/79 (97) Pulse Ox 99 O2 Delivery Room Air Capillary Refill : Height, Weight, BMI Height: 5'4.00" Weight: 150lbs. oz. 68.566415ph; 21.00 BMI Method:Stated General Appearance: No Apparent Distress, WD/WN HEENT: Pharynx Normal Neck: Full Range of Motion, Normal Inspection, Non Tender, Supple Respiratory: Chest Non Tender, Lungs Clear, Normal Breath Sounds, No Accessory Muscle Use, No Respiratory Distress Cardiovascular: Regular Rate, Rhythm, Normal Peripheral Pulses, Extra Beats Gastrointestinal: Normal Bowel Sounds, No Pulsatile Mass, Non Tender, Soft Rectal: Deferred Extremity: Normal Capillary Refill, Normal Inspection, No Pedal Edema Neurologic/Psychiatric: Alert, Oriented x3, rn oncology clinical II-XII Norm as Tested Skin: Normal Color, Warm/Dry Focused Exam Lactate Level 07/13/21 10:33: Lactic Acid Level 0.86 Lactic Acid Level Laboratory Tests Test 07/13/21 10:33 Lactic Acid Level 0.86 MMOL/L (0.50-2.00) Procedures/Interventions Suture Size: 4-0 Progress/Results/Core Measures Suspected Sepsis SIRS Temperature: Pulse: Respiratory Rate: Laboratory Tests 07/13/21 10:33: White Blood Count 11.3H Blood Pressure / Mean: 07/13/21 10:33: Lactic Acid Level 0.86 Laboratory Tests 07/13/21 10:33: Creatinine 1.08, INR Comment 1.0, Platelet Count 263, Total Bilirubin 0.2 Results/Orders Lab Results Laboratory Tests Test 07/13/21 10:33 07/13/21 11:15 Range/Units White Blood Count 11.3 H 4.3-11.0 10^3/uL Red Blood Count 4.00 L 4.30-5.52 10^6/uL Hemoglobin 12.9 L 13.3-17.7 g/dL Hematocrit 39 L 40-54 % Mean Corpuscular Volume 97 80-99 fL Mean Corpuscular Hemoglobin 32 25-34 pg Mean Corpuscular Hemoglobin Concent 33 32-36 g/dL Red Cell Distribution Width 13.8 10.0-14.5 % Platelet Count 263 130-400 10^3/uL Mean Platelet Volume 9.4 9.0-12.2 fL Immature Granulocyte % (Auto) 0 % Neutrophils (%) (Auto) 53 42-75 % Lymphocytes (%) (Auto) 32 12-44 % Monocytes (%) (Auto) 7 0-12 % Eosinophils (%) (Auto) 8 0-10 % Basophils (%) (Auto) 1 0-10 % Neutrophils # (Auto) 6.0 1.8-7.8 X 10^3 Lymphocytes # (Auto) 3.6 1.0-4.0 X 10^3 Monocytes # (Auto) 0.8 0.0-1.0 X 10^3 Eosinophils # (Auto) 0.9 H 0.0-0.3 10^3/uL Basophils # (Auto) 0.1 0.0-0.1 10^3/uL Immature Granulocyte # (Auto) 0.0 0.0-0.1 10^3/uL Prothrombin Time 13.5 12.2-14.7 SEC INR Comment 1.0 0.8-1.4 Activated Partial Thromboplast Time 28 24-35 SEC Sodium Level 140 135-145 MMOL/L Potassium Level 5.1 H 3.6-5.0 MMOL/L Chloride Level 106 98-107 MMOL/L Carbon Dioxide Level 24 21-32 MMOL/L Anion Gap 10 5-14 MMOL/L Blood Urea Nitrogen 27 H 7-18 MG/DL Creatinine 1.08 0.60-1.30 MG/DL Estimat Glomerular Filtration Rate 65 BUN/Creatinine Ratio 25 Glucose Level 213 H 70-105 MG/DL Lactic Acid Level 0.86 0.50-2.00 MMOL/L Calcium Level 9.3 8.5-10.1 MG/DL Corrected Calcium 9.1 8.5-10.1 MG/DL Total Bilirubin 0.2 0.1-1.0 MG/DL Aspartate Amino Transf (AST/SGOT) 14 5-34 U/L Alanine Aminotransferase (ALT/SGPT) 15 0-55 U/L Alkaline Phosphatase 96 40-136 U/L Total Protein 7.4 6.4-8.2 GM/DL Albumin 4.3 3.2-4.5 GM/DL Lipase 32 8-78 U/L Urine Color YELLOW Urine Clarity CLEAR Urine pH 6.0 5-9 Urine Specific [place] 1.010 L 1.016-1.022 Urine Protein NEGATIVE NEGATIVE Urine Glucose (UA) NEGATIVE NEGATIVE Urine Ketones NEGATIVE NEGATIVE Urine Nitrite NEGATIVE NEGATIVE Urine Bilirubin NEGATIVE NEGATIVE Urine Urobilinogen 0.2 < = 1.0 MG/DL Urine Leukocyte Esterase 3+ H NEGATIVE Urine RBC (Auto) TRACE-I NEGATIVE Urine RBC NONE /HPF Urine WBC >100 H /HPF Urine Squamous Epithelial Cells 2-5 /HPF Urine Crystals NONE /LPF Urine Bacteria MODERATE H /HPF Urine Casts NONE /LPF Urine Hyaline Casts /LPF Urine Mucus NEGATIVE /LPF Urine Culture Indicated YES My Orders Orders - NEVAEH AGUILAR MD Comprehensive Metabolic Panel (07/13/21 10:37) Lipase (07/13/21 10:37) Ua Culture If Indicated (07/13/21 10:37) Ed Iv/Invasive Line Start (07/13/21 10:37) Cbc With Automated Diff (07/13/21 10:37) Ct Abdomen/Pelvis W (07/13/21 10:37) Lactic Acid Analyzer (07/13/21 10:37) Ns Iv 1000 Ml (Sodium Chloride 0.9%) (07/13/21 10:37) Pantoprazole Injection (Protonix Injecti (07/13/21 10:37) Protime With Inr (07/13/21 10:37) Partial Thromboplastin Time (07/13/21 10:37) Iohexol Injection (Omnipaque 350 Mg/Ml 1 (07/13/21 11:30) Received Contrast (Hold Metformin- Contr (07/13/21 11:30) Sodium Chloride Flush (Catheter Flush Sy (07/13/21 11:30) Ns (Ivpb) (Sodium Chloride 0.9% Ivpb Bag (07/13/21 11:30) Urine Culture (07/13/21 11:15) Ceftriaxone (Rocephin) (07/13/21 12:17) Medications Given in ED Current Medications Medications Dose Ordered Sig/Jerald Route Start Time Stop Time Status Last Admin Dose Admin Iohexol 100 ml ONCE ONCE IV 07/13/21 11:30 07/13/21 11:31 DC 07/13/21 11:42 100 ML Sodium Chloride 10 ml NEEDED PRN IV 07/13/21 11:30 07/13/21 12:47 DC 07/13/21 11:43 10 ML Sodium Chloride 100 ml ONCE ONCE IV 07/13/21 11:30 07/13/21 11:31 DC 07/13/21 11:43 100 ML Vital Signs/I&O 07/13/21 07/13/21 10:30 13:10 Temp 36.7 36.7 Pulse 109 81 Resp 18 18 B/P (MAP) 133/79 (97) 143/84 Pulse Ox 99 99 O2 Delivery Room Air Room Air Capillary Refill : Progress Note #1: Progress Note Patient denies any symptoms currently. Will check labs, urine, CT scan of abdomen/pelvis. Give IVF for hydration, Protonix for possible gastritis. Lactic acid to help check for ischemic bowel. Differential diagnosis includes gastritis, gastroenteritis, constipation, colon cancer, diverticulitis, colitis, ischemic bowel, bowel obstruction. Progress Note #2: Time: 11:19 Progress Note Labs appear stable with Hgb 12.9 which is similar to prior labs from 2020. Chemistry without acute significant abnormality. he has potassium at upper limit of normal 5.1. Lactic acid is not elevated and LFTs and renal tests are stable. Progress Note #3: Time: 12:21 Progress Note Urine shows UTI so will give dose of Rocephin here. CT scan shows large hyperdense object in gallbladder with distention but no signs of inflammation or infection. Hydroureter/hydronephrosis with enlarged prostate, trabeculated bladder. Multiple cysts in kidneys but some are not consistent with simple cysts so renal ultrasound recommended at some point. Small adrenal nodules that recommend comparison to prior imaging. He does have hiatal hernia that could be related to his symptoms of vomiting. No signs of hemorrhage and blood count and vital signs stable. Diagnostic Imaging Diagonstic Imaging: CT Plain Films/CT/US/NM/MRI: abdomen, pelvis Comments NAME: [facility] REC#: [id number] PT STATUS: REG ER : 1930 PHYSICIAN: NEVAEH AGUILAR MD ADMIT DATE: 07/13/21/ER FS Draft Date of Exam:07/13/21 CT ABDOMEN/PELVIS W PROCEDURE: CT abdomen and pelvis with contrast. TECHNIQUE: Multiple contiguous axial images were obtained through the abdomen and pelvis after administration of intravenous contrast. Auto Exposure Controls were utilized during the CT exam to meet ALARA standards for radiation dose reduction. All CT scans use one or more of the following dose optimizing techniques: automated exposure control, MA and/or KvP adjustment based on patient size and exam type or iterative reconstruction. INDICATION: Abdominal bloating and pain, hematemesis Arison: None available FINDINGS: Mild bibasilar scarring and/or atelectasis. Moderate sized hiatal hernia is present. Significant mural thickening of the partially visualized distal esophagus. No pericardial effusion or pleural effusion within the [id number]. The liver and spleen are unremarkable. 1.2 cm nodule within the left adrenal gland with additional 1.2 cm nodule within the right adrenal gland. The pancreas is unremarkable. 2.9 cm hyperdensity is noted within the gallbladder. The gallbladder is at upper limits of normal in size without adjacent inflammatory stranding. Severe hydroureteronephrosis is present without obstructing renal or ureteral calculi. Bilateral renal cysts and hypodensities are present. A couple of the hypodensities within the right kidney in particular are not definitively consistent with simple benign cyst. Scarring and cortical thinning within the left kidney. Advanced vascular calcifications within the abdominal aorta and its branch vessels without aneurysmal dilatation of the abdominal aorta. The urinary bladder is distended with significant trabeculation present. The prostate gland is enlarged. Small fat-containing left inguinal hernia. No bowel obstruction or pneumatosis. No significant adenopathy, free air, or free fluid within the abdomen or pelvis. Left total hip arthroplasty. Scattered osseous degenerative changes. Minimal retrolisthesis of L2 on L3 with resultant canal stenosis. No acute fracture. IMPRESSION: Moderate size hiatal hernia with significant mural thickening of the distal esophagus suggesting underlying esophagitis. Severe bilateral hydroureteronephrosis without obstructing calculus. Findings are favored related to chronic urinary bladder outlet obstruction secondary to the enlarged prostate gland and the presence of a trabeculated urinary bladder. Indeterminate right renal hypodensities. Although multiple cysts are present, some of these hypodensities are not definitively consistent with simple benign cyst. Therefore, a renal ultrasound is recommended for further evaluation. Large gallstone within the gallbladder without adjacent inflammatory stranding. Small bilateral indeterminate adrenal gland nodules. Given tiny size, hyperplasia versus adenoma is favored. Comparison to prior imaging would be beneficial. Dictated on workstation # [id number] Dict: 07/13/21 1204 Trans: 07/13/21 1217 CV [id number] Interpreted by: YENI LOUISE MD Electronically signed by: Reviewed: Reviewed by Me Departure Impression Primary Impression: Nausea and vomiting Qualified Codes: R11.14 - Bilious vomiting Additional Impressions: Abdominal bloating Cystitis without hematuria Bilateral renal cysts Enlarged prostate Hiatal hernia Disposition: HOME, SELF-CARE Condition: Stable Departure-Patient Inst. Decision time for Depature: 12:31 Referrals: KEYON QURESHI MD (PCP/Family) Primary Care Physician Patient Instructions: Howard Diet, Hiatal Hernia (DC), Nausea and Vomiting, Adult ED, Ulcer and Gastritis Diet, Urinary Tract Infection, Adult ED Add. Discharge Instructions: Take antibiotics to treat for UTI. Take acid reducing medicine to help with hiatal hernia. Follow up with clinic so they can set you up for a renal ultrasound to evaluate the cysts in your kidneys. You may also need to see Urology about enlarged prostate causing some chronic obstruction to kidneys and bladder. Radiology recommends follow up and comparing nodules seen on adrenal glands. All discharge instructions reviewed with patient and/or family. Voiced understanding. Scripts Pantoprazole Sodium (Pantoprazole Sodium) 40 Mg Tablet.dr 40 MG PO DAILY for Hiatal Hernia for 30 Days, #30 TAB 0 Refills Prov: NEVAEH AGUILAR MD 07/13/21 Cephalexin (Cephalexin) 500 Mg Tablet 500 MG PO TID for UTI for 7 Days, #21 TAB 0 Refills Prov: NEVAEH AGUILAR MD 07/13/21 NEVAEH AGUILAR MD Jul 13, 2021 10:30
[2021-07-13] MEDS ORDERED: NS IV 1000 ML 1,000 ML IV STA (10:37)
[2021-07-13] MEDS ORDERED: PANTOPRAZOLE 40 MG (PROTONIX) VIAL IV STA (10:37)
[2021-07-13 10:44] LABS: BASOPHILS # (AUTO) 0.1 10^3/uL (0.0-0.1); BASOPHILS % (AUTO) 1 % (0-10); EOSINOPHILS # (AUTO) 0.9 10^3/uL (0.0-0.3); EOSINOPHILS % (AUTO) 8 % (0-10); HEMATOCRIT 39 % (40-54); HEMOGLOBIN 12.9 g/dL (13.3-17.7); LYMPHOCYTES # (AUTO) 3.6 X 10^3 (1.0-4.0); LYMPHOCYTES % (AUTO) 32 % (12-44); MEAN CORPUSCULAR HEMOGLOBIN 32 pg (25-34); MEAN CORPUSCULAR HGB CONC 33 g/dL (32-36); MEAN CORPUSCULAR VOLUME 97 fL (80-99); MEAN PLATELET VOLUME 9.4 fL (9.0-12.2); MONOCYTES # (AUTO) 0.8 X 10^3 (0.0-1.0); MONOCYTES % (AUTO) 7 % (0-12); NEUTROPHILS % (AUTO) 53 % (42-75); PLATELET COUNT 263 10^3/uL (130-400); WHITE BLOOD COUNT 11.3 10^3/uL (4.3-11.0)
[2021-07-13 11:06] LABS: PROTHROMBIN TIME PATIENT 13.5 SEC (12.2-14.7)
[2021-07-13 11:07] LABS: ALBUMIN 4.3 GM/DL (3.2-4.5); BILIRUBIN,TOTAL 0.2 MG/DL (0.1-1.0); CALCIUM 9.3 MG/DL (8.5-10.1); CREATININE SERUM 1.08 MG/DL (0.60-1.30); POTASSIUM 5.1 MMOL/L (3.6-5.0); TOTAL PROTEIN 7.4 GM/DL (6.4-8.2)
[2021-07-13] MEDS ORDERED: HOLD METFORMIN - RECEIVED CONTRAST 20 ML VIAL IV SCH (11:30)
[2021-07-13] MEDS ORDERED: IOHEXOL 350 MG/ML 100 ML (OMNIPAQUE 350) VIAL IV ONE (11:30)
[2021-07-13] MEDS ORDERED: CATHETER FLUSH 10 ML SYR IV PRN (11:30)
[2021-07-13] MEDS ORDERED: NS 100 ML (IVPB) BAG IV ONE (11:30)
[2021-07-13 11:41] LABS: BACTERIA,URINE MODERATE /HPF; BILIRUBIN,URINE NEGATIVE (NEGATIVE); CLARITY,URINE CLEAR; COLOR,URINE YELLOW; GLUCOSE, URINE (UA) NEGATIVE (NEGATIVE); KETONES,URINE NEGATIVE (NEGATIVE); LEUKOCYTE ESTERASE ,URINE 3+ (NEGATIVE); NITRITE,URINE NEGATIVE (NEGATIVE); PROTEIN,URINE NEGATIVE (NEGATIVE); WBC,URINE >100 /HPF
[2021-07-13] MEDS ORDERED: cefTRIAXone 1,000 MG in WATER (STERILE) FOR INJECTION 10 ML IV STA (12:17)
--- NOTE | 2021-07-13 12:18 | Diagnostic Imaging Report ---
PROCEDURE: CT abdomen and pelvis with contrast. TECHNIQUE: Multiple contiguous axial images were obtained through the abdomen and pelvis after administration of intravenous contrast. Auto Exposure Controls were utilized during the CT exam to meet ALARA standards for radiation dose reduction. All CT scans use one or more of the following dose optimizing techniques: automated exposure control, MA and/or KvP adjustment based on patient size and exam type or iterative reconstruction. INDICATION: Abdominal bloating and pain, hematemesis Arison: None available FINDINGS: Mild bibasilar scarring and/or atelectasis. Moderate sized hiatal hernia is present. Significant mural thickening of the partially visualized distal esophagus. No pericardial effusion or pleural effusion within the [id number]-ex-laay. The liver and spleen are unremarkable. 1.2 cm nodule within the left adrenal gland with additional 1.2 cm nodule within the right adrenal gland. The pancreas is unremarkable. 2.9 cm hyperdensity is noted within the gallbladder. The gallbladder is at upper limits of normal in size without adjacent inflammatory stranding. Severe hydroureteronephrosis is present without obstructing renal or ureteral calculi. Bilateral renal cysts and hypodensities are present. A couple of the hypodensities within the right kidney in particular are not definitively consistent with simple benign cyst. Scarring and cortical thinning within the left kidney. Advanced vascular calcifications within the abdominal aorta and its branch vessels without aneurysmal dilatation of the abdominal aorta. The urinary bladder is distended with significant trabeculation present. The prostate gland is enlarged. Small fat-containing left inguinal hernia. No bowel obstruction or pneumatosis. No significant adenopathy, free air, or free fluid within the abdomen or pelvis. Left total hip arthroplasty. Scattered osseous degenerative changes. Minimal retrolisthesis of L2 on L3 with resultant canal stenosis. No acute fracture. IMPRESSION: Moderate size hiatal hernia with significant mural thickening of the distal esophagus suggesting underlying esophagitis. Severe bilateral hydroureteronephrosis without obstructing calculus. Findings are favored related to chronic urinary bladder outlet obstruction secondary to the enlarged prostate gland and the presence of a trabeculated urinary bladder. Indeterminate right renal hypodensities. Although multiple cysts are present, some of these hypodensities are not definitively consistent with simple benign cyst. Therefore, a renal ultrasound is recommended for further evaluation. Large gallstone within the gallbladder without adjacent inflammatory stranding. Small bilateral indeterminate adrenal gland nodules. Given tiny size, hyperplasia versus adenoma is favored. Comparison to prior imaging would be beneficial. Dictated by: Dictated on workstation # [id number]
[2021-07-13] MEDS ORDERED: PANT40TA52 PO (12:36)
[2021-07-13] MEDS ORDERED: CEPH500T PO (12:36)
[2021-07-13 13:10] VITALS: BP 143/84
== END 2021-07-13 12:47 | disposition home or self-care (01) ==
LOC: EDUNIT# 10:19 → ER FS 10:21
DX: R14.0 Abdominal distension (gaseous) (principal); N30.90 Cystitis, unspecified without hematuria; N28.1 Cyst of kidney, acquired; N40.0 Benign prostatic hyperplasia without lower urinary tract symptoms; K44.9 Diaphragmatic hernia without obstruction or gangrene; J44.9 Chronic obstructive pulmonary disease, unspecified; I10 Essential (primary) hypertension; I25.2 Old myocardial infarction; K21.9 Gastro-esophageal reflux disease without esophagitis; Z79.899 Other long term (current) drug therapy
CPT/HCPCS: 36415; 74177; 80053; 81000; 83605; 83690; 85025; 85610; 85730; 87088

== ENCOUNTER 2021-10-15 05:36 | Outpatient (CLI) | payer MEDICARE ==
[~2021-10-15] VITALS: Ht 175.6 cm; Wt 70.5 kg
[~2021-10-15 05:36] MED LIST: CEPH500T PO; PANT40TA52 PO
[2021-10-15] MEDS ORDERED: FINA5TAB6 PO (15:01)
[2021-10-15] MEDS ORDERED: TMSL.4C PO (15:01)
[2021-10-15] MEDS ORDERED: OMEP20TA7 PO (15:01)
[2021-10-15] MEDS ORDERED: SIMV80TA21 PO (15:01)
[2021-10-15] MEDS ORDERED: LISI5TAB20 PO (15:01)
[2021-10-15] MEDS ORDERED: PHEN100C11 PO (15:01)
[2021-10-15] MEDS ORDERED: GLIP-30 PO (15:01)
[2021-10-15] MEDS ORDERED: LEVE500T6 PO (15:01)
== END 2021-10-15 15:14 | disposition home or self-care (01) ==
LOC: PREOP 05:36
PROVIDERS: ATTEND Urology
DX: Z01.818 Encounter for other preprocedural examination (principal)

== ENCOUNTER → 2021-10-17 | Outpatient (CLI) | payer MEDICARE ==
[~2021-10-17] MED LIST changes: +FINA5TAB6 PO; +GLIP-30 PO; +LEVE500T6 PO; +LISI5TAB20 PO; +OMEP20TA7 PO; +PHEN100C11 PO; +SIMV80TA21 PO; +TMSL.4C PO
== END ==
LOC: LAB FS 09:59
PROVIDERS: ATTEND Urology
DX: N40.0 Benign prostatic hyperplasia without lower urinary tract symptoms (principal)
CPT/HCPCS: 87635

== ENCOUNTER 2021-10-22 06:24 | Day surgery (SDC) | payer MEDICARE ==
[~2021-10-22] VITALS: Ht 175.6 cm; Wt 70.5 kg
[2021-10-22] VITALS (11 sets, daily range): BP systolic 79–145; BP diastolic 46–91
[2021-10-22] MEDS ORDERED: ASPI-999 PO (07:09)
[2021-10-22] MEDS ORDERED: ONDANSETRON 4 MG/2 ML (SDV) Z0FRAN ONE (07:13)
[2021-10-22] MEDS ORDERED: fentaNYL INJ 100 MCG/2 ML AMP ONE (07:13)
[2021-10-22] MEDS ORDERED: proPOfol 200 MG/20 ML (DIPRIVAN) VIAL IV ONE (07:13)
[2021-10-22] MEDS ORDERED: LIDOCAINE PF 2% 5 ML (XYLOCAINE) VIAL ONE (07:13)
[2021-10-22] MEDS ORDERED: NEOSPORIN + PAIN RELIEF CREAM 15 GM ONE (07:14)
[2021-10-22] MEDS ORDERED: LACTATED RINGERS 1,000 ML IV PRN (07:15)
[2021-10-22] MEDS ORDERED: cefTRIAXone 1 GM PRE-MIX 50 ML IV ONE (07:15)
--- NOTE | 2021-10-22 07:30 | Progress Note-Pre Operative ---
Pre-Operative Progress Note H&P Reviewed The H&P was reviewed, patient examined and no changes noted. Date Seen by Provider: Oct 22, 2021 Time Seen by Provider: 07:30 Date H&P Reviewed: Oct 22, 2021 Time H&P Reviewed: 07:30 Pre-Operative Diagnosis: BPH TAMRA GARCIA MD Oct 22, 2021 07:30
--- NOTE | 2021-10-22 07:33 | Progress Note-Post Operative ---
Post-Operative Progess Note Surgeon (s)/Pull Tab Dealer (s) Surgeon TAMRA GARCIA MD Pull Tab Dealer: NONE Pre-Operative Diagnosis BPH WITH PROSTATISM AND RETENTION Post-Operative Diagnosis SAME Procedure & Operative Findings Date of Procedure 10/22/21 Procedure Performed/Findings UROLIFT IMPLANTS (4) Anesthesia Type GENERAL Estimated Blood Loss Estimated blood loss (mL): NEGLIGIBLE Specimens/Packing Specimens Removed NONE Packing: NONE TAMRA GARCIA MD Oct 22, 2021 07:33
--- NOTE | 2021-10-22 07:35 | Discharge Inst-Urology ---
Discharge Inst-Urology Reconcile Patient Problems Problems Reviewed?: Yes Final Diagnosis BPH Patient Instructions/Follow Up Plan/Assessment/Instructions DC Davis once fully awake and alert, discharge once voided Please make appointment to been seen in office in 2 weeks. Rest till then Stay off ASA Increase oral fluids for 48 hours and then as needed. Keep bowels soft and moving Diet as tolerated. If questions or concerns contact your physician Or seek help at emergency department. TAMRA GARCIA MD Oct 22, 2021 07:35
[2021-10-22] MEDS ORDERED: SEVOFLURANE (ULTANE) 15 ML INHAL SOLN ONE (07:59)
--- NOTE | 2021-10-22 08:26 | Anesthesia-General Post-Op ---
General Patient Condition Mental Status/LOC: Same as Preop Cardiovascular: Satisfactory Nausea/Vomiting: Absent Respiratory: Satisfactory Pain: Controlled Complications: Absent Post Op Complications Complications None Follow Up Care/Instructions Patient Instructions None needed. Anesthesia/Patient Condition Patient Condition Patient is doing well, no complaints, stable vital signs, no apparent adverse anesthesia problems. No complications reported per nursing. RAJNI MALIK CRNA Oct 22, 2021 08:26
[2021-10-22] MEDS ORDERED: ONDANSETRON 4 MG/2 ML (SDV) Z0FRAN IVP PRN (08:30)
[2021-10-22] MEDS ORDERED: morphine INJ 10 MG/ML 1ML (SYR OR VIAL) IVP ONE (08:30)
[2021-10-22] MEDS ORDERED: MEPERIDINE (DEMEROL) INJ 50 MG/ML IVP ONE (08:30)
--- NOTE | 2021-10-22 14:24 | OPERATIVE REPORT ---
DATE OF SERVICE: 10/22/2021 PREOPERATIVE DIAGNOSIS: Benign prostatic hyperplasia with prostatism and retention. POSTOPERATIVE DIAGNOSIS: Benign prostatic hyperplasia with prostatism and retention. OPERATION PERFORMED: UroLift implant with 4. SURGEON: Steven Garcia MD ANESTHESIA: General. COMPLICATIONS: None. DESCRIPTION OF PROCEDURE: Under satisfactory general anesthesia, the patient in lithotomy position, genitalia were prepped and draped in the usual sterile fashion. Special UroLift cystoscope was introduced with visualizing by camera. The urethra was normal. The prostate showed enlargement of the lateral lobe meeting in the midline causing bladder neck obstruction. Bladder revealed 4+ trabeculation of the ortiz and cellules. No foreign body, bladder tumor or stone visualized. I went ahead and inserted four UroLift implants using the described technique. There was good opening of the channel and very minimal bleeding. I removed the instrument elected to leave a catheter until the patient is fully awake. So I inserted an 18-[place] Davis catheter draining clear fluid and connected to dependent drainage. The patient tolerated the procedure and anesthesia well and was sent to recovery room in stable condition. Job ID: [id number] DocumentID: [id number] Dictated Date: 10/22/2021 09:05:29 Beam Racker Date: 10/22/2021 14:23:27 Dictated By: STEVEN GARCIA MD
== END 2021-10-22 10:30 | disposition home or self-care (01) ==
LOC: SDC 06:24
PROVIDERS: ATTEND Urology
DX: N40.1 Benign prostatic hyperplasia with lower urinary tract symptoms (principal); R33.8 Other retention of urine; I10 Essential (primary) hypertension; E11.9 Type 2 diabetes mellitus without complications; I25.10 Atherosclerotic heart disease of native coronary artery without angina pectoris; J44.9 Chronic obstructive pulmonary disease, unspecified; K21.9 Gastro-esophageal reflux disease without esophagitis; Z95.1 Presence of aortocoronary bypass graft; Z79.84 Long term (current) use of oral hypoglycemic drugs; Z79.899 Other long term (current) drug therapy
CPT/HCPCS: 52441; 52442 ×3; 82947; 86850; 86900; 86901; 87081; L8699

== ENCOUNTER → 2021-12-30 | Outpatient (CLI) | payer MEDICARE ==
[~2021-12-30] MED LIST changes: +ASPI-999 PO
--- NOTE | 2021-12-30 11:22 | Diagnostic Imaging Report ---
INDICATION: Constipation. COMPARISON: None FINDINGS: 2 frontal radiographic views of the abdomen were obtained. Small bowel loops are nondistended. Mild air and stool seen scattered throughout the colon. There is no large collection of free intraperitoneal air. No unexpected extraosseous calcifications or radiopaque foreign bodies are seen. Osseous structures show age-related degenerative changes. IMPRESSION: 1. Nonobstructed small bowel gas pattern. 2. Mild colonic air and stool. Dictated by: Dictated on workstation # [id number]
== END ==
LOC: RAD FS 10:01
PROVIDERS: ATTEND Family Medicine
DX: K59.01 Slow transit constipation (principal)
CPT/HCPCS: 74018

== ENCOUNTER 2022-02-09 20:30 | Emergency (ER) | payer MEDICARE ==
[~2022-02-09] VITALS: Ht 170.2 cm; Wt 68.0 kg
[~2022-02-09 20:30] MED LIST changes: +OMEP20TA56 PO; -OMEP20TA7 PO
[2022-02-09 21:55] LABS: BASOPHILS % (AUTO) 0 % (0-10); EOSINOPHILS # (AUTO) 0.1 10^3/uL (0.0-0.3); EOSINOPHILS % (AUTO) 0 % (0-10); HEMATOCRIT 37 % (40-54); HEMOGLOBIN 12.8 g/dL (13.3-17.7); LYMPHOCYTES # (AUTO) 1.6 10^3/uL (1.0-4.0); LYMPHOCYTES % (AUTO) 10 % (12-44); MEAN CORPUSCULAR HEMOGLOBIN 31 pg (25-34); MEAN CORPUSCULAR HGB CONC 34 g/dL (32-36); MEAN CORPUSCULAR VOLUME 91 fL (80-99); MEAN PLATELET VOLUME 9.7 fL (9.0-12.2); MONOCYTES # (AUTO) 1.1 10^3/uL (0.0-1.0); MONOCYTES % (AUTO) 7 % (0-12); NEUTROPHILS # (AUTO) 13.3 10^3/uL (1.8-7.8); NEUTROPHILS % (AUTO) 82 % (42-75); PLATELET COUNT 229 10^3/uL (130-400); WHITE BLOOD COUNT 16.1 10^3/uL (4.3-11.0)
[2022-02-09 22:02] LABS: ALBUMIN 3.8 GM/DL (3.2-4.5); POTASSIUM 3.8 MMOL/L (3.6-5.0)
[2022-02-09 22:03] LABS: CALCIUM 8.2 MG/DL (8.5-10.1)
[2022-02-09 22:05] LABS: TOTAL PROTEIN 6.6 GM/DL (6.4-8.2)
[2022-02-09 22:06] LABS: BILIRUBIN,TOTAL 0.4 MG/DL (0.1-1.0)
[2022-02-09 22:08] LABS: CREATININE SERUM 1.33 MG/DL (0.60-1.30)
[2022-02-09 22:11] LABS: LYMPHOCYTES % (MANUAL) 10 %; MONOCYTES % (MANUAL) 7 %; NEUTROPHILS % (MANUAL) 83 %; RBC MORPH NORMAL
[2022-02-09] MEDS ORDERED: LACTATED RINGERS 1,000 ML IV ONE (23:00)
[2022-02-10 00:57] LABS: BILIRUBIN,URINE NEGATIVE (NEGATIVE); CLARITY,URINE CLEAR; COLOR,URINE YELLOW; GLUCOSE, URINE (UA) 1+ (NEGATIVE); KETONES,URINE NEGATIVE (NEGATIVE); LEUKOCYTE ESTERASE ,URINE NEGATIVE (NEGATIVE); NITRITE,URINE NEGATIVE (NEGATIVE); PH,URINE 5.5 (5-9); PROTEIN,URINE NEGATIVE (NEGATIVE)
[2022-02-10 01:11] LABS: BACTERIA,URINE NEGATIVE /HPF; RBC,URINE RARE /HPF
[2022-02-10] MEDS ORDERED: DOXYCYCLINE 100 MG (VIBRAMYCIN) TABLET PO STA (01:23)
[2022-02-10] MEDS ORDERED: DOXY100T2 PO (01:27)
--- NOTE | 2022-02-10 01:28 | ED General ---
General Chief Complaint: - Reproductive Stated Complaint: LUNG PROBLEMS Nursing Triage Note: Pt to ER for chief complaint of Cough and reports he was sent here by [facility] in [facility]. Pt reports that he has had this cough for "a little while" and that he deciede to go to the clinic today because he also thought he had a UTI. Pt also reports he was sent here by [facility] afrshad he was told "he needed to be admitted". Source of Information: Patient, Family History of Present Illness Date Seen by Provider: February 09, 2022 Time Seen by Provider: 21:48 Initial Comments This 89-year-old gentleman presents to the emergency room by private vehicle accompanied by his sisters with complaints of cough. In general, he reports no significant change in his cough over the past few weeks, but he did have an episode of severe coughing earlier this evening. He had some wheezing associated with the cough. He presented to the walk-in clinic at [facility] in [place]. He was directed to the emergency room according to his report. Reportedly he was swabbed for COVID-19 and this result was negative. Sisters report he had a temperature of 101.0 at home earlier today. He has reported some chills. In addition to respiratory issues he describes recurrent bladder infections. He is on Flomax for prostate issues. He also has had some type of bladder procedure performed by Dr. Garcia. He has been unable to produce a urine specimen for us here. He also reports some pain in the right mid torso laterally when he coughs. Allergies and Home Medications Allergies Coded Allergies: Penicillins (Verified Allergy, Unknown, 10/22/21) Patient Home Medication List Home Medication List Reviewed: Yes Doxycycline Hyclate (Doxycycline Hyclate) 100 Mg Tablet, 100 MG PO BID Prescribed by: SAMARA SANTIZO on 02/10/22 0127 Finasteride (Finasteride) 5 Mg Tablet, 5 MG PO DAILY, (Reported) Entered as Reported by: LITA ABREU on 10/15/21 1501 Glipizide (Glipizide Xl) 5 Mg Tab.er.24, 5 MG PO DAILY, (Reported) Entered as Reported by: LITA ABREU on 10/15/21 1501 Levetiracetam (Levetiracetam) 500 Mg Tablet, 500 MG PO BID, (Reported) Entered as Reported by: LITA ABREU on 10/15/21 1501 Lisinopril (Lisinopril) 5 Mg Tablet, 2.5 MG PO DAILY, (Reported) Entered as Reported by: LITA ABREU on 10/15/21 150 Omeprazole (Omeprazole) 20 Mg Tablet.dr, 20 MG PO DAILY, (Reported) Entered as Reported by: LITA ABREU on 10/15/21 150 Phenytoin Sodium Extended (Phenytoin Sodium Extended) 100 Mg Capsule, 100 MG PO BID, (Reported) Entered as Reported by: LITA ABREU on 10/15/21 1501 Simvastatin (Simvastatin) 80 Mg Tablet, 40 MG PO HS, (Reported) Entered as Reported by: LITA ABREU on 10/15/21 150 Tamsulosin HCl (Flomax) 0.4 Mg Cap, 0.4 MG PO BID, (Reported) Entered as Reported by: ILTA ABREU on 10/15/21 150 Review of Systems Review of Systems Constitutional: see HPI EENTM: no symptoms reported Respiratory: see HPI Cardiovascular: no symptoms reported Gastrointestinal: no symptoms reported Genitourinary: see HPI Musculoskeletal: see HPI Skin: no symptoms reported Psychiatric/Neurological: No Symptoms Reported Hematologic/Lymphatic: No Symptoms Reported Immunological/Allergic: no symptoms reported Past Dkgunth-Aemlit-Lijvkj Hx Patient Social History Tobacco Use?: No Smoking Status: Never a Smoker Smokeless Tobacco Frequency: Never a User Use of E-Cig and/or Vaping dev: No Use of E-Cig and/or Vaping Yaw: Never a User Substance use?: No Alcohol Use?: No Pt feels they are or have been: No Immunizations Up To Date Tetanus Booster (TDap): Unknown Influenza Vaccine Up-to-Date: Yes; Up-to-Date First/Initial COVID19 Vaccinat: Not currently vaccinated Seasonal Allergies Seasonal Allergies: No Past Medical History Surgeries: Yes (Left hip replaced, bilat ing hernia repair) Bladder Surgery, Cardiac, CABG, Orthopedic Respiratory: Yes COPD Currently Using CPAP: No Currently Using BIPAP: No Cardiac: Yes (cabg-1989) Coronary Artery Disease, Heart Attack, Hypertension Neurological: Yes Seizure Disorder Genitourinary: Yes (Chronic Kidney disease, urine retention) Benign Prostatic Hyperpl, UTI-Chronic Gastrointestinal: Yes Gastroesophageal Reflux, Chronic Constipation Musculoskeletal: Yes Fractures Endocrine: Yes Diabetes, Non-Insulin dep HEENT: No Cancer: No Psychosocial: Yes Depression Integumentary: No Blood Disorders: No Physical Exam Vital Signs Vital Signs - First Documented 02/09/22 21:14 Temp 38.0 Pulse 104 Resp 19 B/P (MAP) 139/68 (91) Pulse Ox 96 O2 Delivery Room Air Capillary Refill : Less Than 3 Seconds Height, Weight, BMI Height: 5'4.00" Weight: 150lbs. oz. [id number]; 23.00 BMI Method:Stated General Appearance: No Apparent Distress, WD/WN HEENT: PERRL/EOMI, Normal ENT Inspection Neck: Normal Inspection Respiratory: No Accessory Muscle Use, No Respiratory Distress, Crackles (Faint crackles right base), Decreased Breath Sounds (On the right) Cardiovascular: Regular Rate, Rhythm, No Edema, No Murmur Gastrointestinal: Normal Bowel Sounds, Non Tender, Soft Extremity: Normal Inspection, Non Tender, No Pedal Edema Neurologic/Psychiatric: Alert, No Motor/Sensory Deficits, Normal Mood/Affect, Other (Somewhat confused historian) Skin: Normal Color, Warm/Dry Focused Exam Lactate Level 02/09/22 21:23: Lactic Acid Level 1.38 Lactic Acid Level Laboratory Tests Test 02/09/22 21:23 Lactic Acid Level 1.38 MMOL/L (0.50-2.00) Procedures/Interventions Suture Size: 4-0 Progress/Results/Core Measures Suspected Sepsis SIRS Temperature: Pulse: 104 Respiratory Rate: 19 Laboratory Tests 02/09/22 21:23: White Blood Count 16.1H Blood Pressure 139 /68 Mean: 91 02/09/22 21:23: Lactic Acid Level 1.38 Laboratory Tests 02/09/22 21:23: Creatinine 1.33H, Platelet Count 229, Total Bilirubin 0.4 Results/Orders Lab Results Laboratory Tests Test 02/09/22 21:23 02/09/22 22:53 02/10/22 00:50 Range/Units White Blood Count 16.1 H 4.3-11.0 10^3/uL Red Blood Count 4.08 L 4.30-5.52 10^6/uL Hemoglobin 12.8 L 13.3-17.7 g/dL Hematocrit 37 L 40-54 % Mean Corpuscular Volume 91 80-99 fL Mean Corpuscular Hemoglobin 31 25-34 pg Mean Corpuscular Hemoglobin Concent 34 32-36 g/dL Red Cell Distribution Width 12.7 10.0-14.5 % Platelet Count 229 130-400 10^3/uL Mean Platelet Volume 9.7 9.0-12.2 fL Immature Granulocyte % (Auto) 0 % Neutrophils (%) (Auto) 82 H 42-75 % Lymphocytes (%) (Auto) 10 L 12-44 % Monocytes (%) (Auto) 7 0-12 % Eosinophils (%) (Auto) 0 0-10 % Basophils (%) (Auto) 0 0-10 % Neutrophils # (Auto) 13.3 H 1.8-7.8 10^3/uL Lymphocytes # (Auto) 1.6 1.0-4.0 10^3/uL Monocytes # (Auto) 1.1 H 0.0-1.0 10^3/uL Eosinophils # (Auto) 0.1 0.0-0.3 10^3/uL Basophils # (Auto) 0.0 0.0-0.1 10^3/uL Immature Granulocyte # (Auto) 0.1 0.0-0.1 10^3/uL Neutrophils % (Manual) 83 % Lymphocytes % (Manual) 10 % Monocytes % (Manual) 7 % Blood Morphology Comment NORMAL Sodium Level 135 135-145 MMOL/L Potassium Level 3.8 3.6-5.0 MMOL/L Chloride Level 103 98-107 MMOL/L Carbon Dioxide Level 19 L 21-32 MMOL/L Anion Gap 13 5-14 MMOL/L Blood Urea Nitrogen 18 7-18 MG/DL Creatinine 1.33 H 0.60-1.30 MG/DL Estimat Glomerular Filtration Rate 51 BUN/Creatinine Ratio 14 Glucose Level 254 H 70-105 MG/DL Lactic Acid Level 1.38 0.50-2.00 MMOL/L Calcium Level 8.2 L 8.5-10.1 MG/DL Corrected Calcium 8.4 L 8.5-10.1 MG/DL Total Bilirubin 0.4 0.1-1.0 MG/DL Aspartate Amino Transf (AST/SGOT) 10 5-34 U/L Alanine Aminotransferase (ALT/SGPT) 15 0-55 U/L Alkaline Phosphatase 83 40-136 U/L C-Reactive Protein High Sensitivity 2.25 H 0.00-0.50 MG/DL Total Protein 6.6 6.4-8.2 GM/DL Albumin 3.8 3.2-4.5 GM/DL Procalcitonin 0.23 H <0.10 NG/ML Influenza Type A (RT-PCR) Not Detected Not Detecte Influenza Type B (RT-PCR) Not Detected Not Detecte SARS-CoV-2 RNA (RT-PCR) Not Detected Not Detecte Urine Color YELLOW Urine Clarity CLEAR Urine pH 5.5 5-9 Urine Specific [place] 1.010 L 1.016-1.022 Urine Protein NEGATIVE NEGATIVE Urine Glucose (UA) 1+ H NEGATIVE Urine Ketones NEGATIVE NEGATIVE Urine Nitrite NEGATIVE NEGATIVE Urine Bilirubin NEGATIVE NEGATIVE Urine Urobilinogen 0.2 < = 1.0 MG/DL Urine Leukocyte Esterase NEGATIVE NEGATIVE Urine RBC (Auto) TRACE-I H NEGATIVE Urine RBC RARE /HPF Urine WBC NONE /HPF Urine Squamous Epithelial Cells 2-5 /HPF Urine Crystals NONE /LPF Urine Bacteria NEGATIVE /HPF Urine Casts NONE /LPF Urine Mucus NEGATIVE /LPF Urine Culture Indicated NO My Orders Orders - SAMARA WONG MD Ed Iv/Invasive Line Start (02/09/22 21:48) Cbc With Automated Diff (02/09/22 21:48) Comprehensive Metabolic Panel (02/09/22 21:48) Hs C Reactive Protein (02/09/22 21:48) Lactic Acid Analyzer (02/09/22 21:48) Procalcitonin (Pct) (02/09/22 21:48) Ua Culture If Indicated (02/09/22 21:48) Covid 19 Inhouse Test (02/09/22 21:48) Influenza A And B By Pcr (02/09/22 21:48) Manual Differential (02/09/22 21:23) Lactated Ringers (Lr 1000 Ml Iv Solution (02/09/22 23:00) Chest Pa/Lat (2 View) (02/09/22 22:55) Bladder Scan (02/10/22 00:11) Doxycycline Hyclate Tablet (Vibramycin T (02/10/22 01:23) Medications Given in ED Current Medications Medications Dose Ordered Sig/Jerald Route Start Time Stop Time Status Last Admin Dose Admin Lactated Ringer's 1,000 ml @ 0 mls/hr Q0M ONCE IV 02/09/22 23:00 02/09/22 23:01 DC 02/09/22 23:06 1,000 MLS/HR Vital Signs/I&O 02/09/22 02/09/22 02/10/22 21:14 21:14 01:36 Temp 38.0 Pulse 104 79 Resp 19 16 B/P (MAP) 139/68 (91) 109/57 Pulse Ox 96 95 O2 Delivery Room Air Room Air Capillary Refill : Less Than 3 Seconds Blood Pressure Mean: 91 Progress Note : Progress Note Patient was unable to produce a urine specimen. He was given IV fluids and bladder was scanned. He had greater than 500 mL retained urine in his bladder. He was then able to void about 75 mL. Urine showed no evidence of pyuria. Catheter was offered. Patient wished to forego catheter at this time and follow-up with Dr. Garcia. There was suspicion for pneumonia on the chest x-ray. Patient was treated with doxycycline and doxycycline was prescribed. See discharge instructions for further discussion. Patient had no significant cough, wheezing, shortness of breath, or respiratory distress while in the ER. Diagnostic Imaging Diagonstic Imaging: Xray Plain Films/CT/US/NM/MRI: chest Comments Chest x-ray viewed by me and compared with prior. Report not yet available. There appears to be some subtle right lower lung infiltrate suspicious for pneumonia. Departure Impression Primary Impression: Right lower lobe pneumonia Qualified Codes: J18.9 - Pneumonia, unspecified organism Additional Impression: Urinary retention Disposition: HOME, SELF-CARE Condition: Stable Departure-Patient Inst. Decision time for Depature: 01:25 Referrals: KEYON QURESHI MD (PCP/Family) Primary Care Physician Patient Instructions: Pneumonia, Adult ED, Urinary Retention Add. Discharge Instructions: Continue your medications as previously prescribed. Drink plenty of clear liquids to stay well-hydrated and attempt to urinate ofte n. Return to the ER if you are unable to urinate or have other issues with urination such as discomfort, blood in your urine, etc. Please follow-up with Dr. Garcia as soon as possible. Call later this morning to see about a sooner follow-up time. Continue your medications as previously prescribed. There is suspicion of a pneumonia in your right lung. Take doxycycline as prescribed. Call your doctors office in the morning to schedule a follow-up appointment for sometime in the next week. Return to the ER if you have any other significant problems or concerns. All discharge instructions reviewed with patient and/or family. Voiced un derstanding. Scripts Doxycycline Hyclate (Doxycycline Hyclate) 100 Mg Tablet 100 MG PO BID, #20 TAB 0 Refills Prov: SAMARA WONG MD 02/10/22 Copy Copies To 1: TAMRA GARCIA MD Copies To 2: KEYON QURESHI MD, JOSHUA T MD February 10, 2022 01:28
[2022-02-10 01:36] VITALS: BP 109/57
--- NOTE | 2022-02-10 05:59 | Diagnostic Imaging Report ---
INDICATION: Cough and fever. PA and lateral views of the chest were obtained. Comparison made with prior examination of 02/08/2020. FINDINGS: The heart size is upper limits of normal. There is a patchy left perihilar and left basilar infiltrate. There is a small left pleural effusion. There is no pneumothorax. The mediastinum is unremarkable. There has been previous median sternotomy and coronary artery bypass graft. IMPRESSION: Left lingular and basilar infiltrate suspect for pneumonia with a small left pleural effusion Dictated by: Dictated on workstation # [id number]
== END 2022-02-10 01:40 | disposition home or self-care (01) ==
LOC: EDUNIT# 20:30 → ER 20:36
DX: J18.9 Pneumonia, unspecified organism (principal); R33.9 Retention of urine, unspecified; Z20.822 Contact with and (suspected) exposure to COVID-19
CPT/HCPCS: 36415; 71046; 80053; 81000; 83605; 84145; 85007; 85027; 86141; 87636